=== PATIENT | male | born 1995 | race Caucasian/White ===

== ENCOUNTER 2025-05-05 17:08 | Emergency (ER) | payer OTHER ==
[~2025-05-05] VITALS: Ht 188 cm; Wt 77.1 kg
[~2025-05-05 17:08] MED LIST: CLOT15CR27 TP; DOXY-226 PO; PRED20TA PO
[2025-05-05 17:20] VITALS: O2SAT 99
[2025-05-05] MEDS ORDERED: OLAN5TAB3 PO (18:34)
[2025-05-05] MEDS ORDERED: OLANZAPINE 5 MG TABLET ONE (18:38)
[2025-05-05] MEDS: OLANZAPINE 5 MG TABLET PO ONE (18:38)
== END 2025-05-05 18:43 | disposition home or self-care (01) ==
LOC: ER 17:13
DX: F22 Delusional disorders (principal); F15.10 Other stimulant abuse, uncomplicated; F12.90 Cannabis use, unspecified, uncomplicated; F42.9 Obsessive-compulsive disorder, unspecified; F19.10 Other psychoactive substance abuse, uncomplicated; Z79.52 Long term (current) use of systemic steroids; Z87.39 Personal history of other diseases of the musculoskeletal system and connective tissue
CPT/HCPCS: A4606; A4663